=== PATIENT | female | born 2000 | race Caucasian/White ===

== ENCOUNTER 2023-10-09 16:29 | Emergency (ER) | payer OTHER ==
[~2023-10-09] VITALS: Ht 170.1 cm; Wt 63.5 kg
== END 2023-10-09 16:54 | disposition left against medical advice (07) ==
LOC: ED 16:29
DX: O26.899 Other specified pregnancy related conditions, unspecified trimester (principal); M54.9 Dorsalgia, unspecified; Z53.21 Procedure and treatment not carried out due to patient leaving prior to being seen by health care provider; Z3A.00 Weeks of gestation of pregnancy not specified